=== PATIENT | female | born 1950 | race Caucasian/White ===

== ENCOUNTER 2016-03-02 09:54 | Outpatient (CLI) | payer MEDICARE, BC ==
[2016-03-02 10:48] LABS: Bilirubin Negative (Negative); Blood, Urine Negative (Negative); Clarity Clear (Clear); Glucose, Urine (Dipstick) Negative (Negative); Leukocyte Small (Negative); Nitrite Negative (Negative); Protein, Urine (Dipstick) Negative (Neg-Trace); Urobilinogen 0.2 mg/dL (0.2-1.0); pH, Urine 5.5 (5.0-9.0)
[2016-03-02 10:55] LABS: ALT (SGPT) 21 U/L (0-55); AST (SGOT) 25 U/L (5-34); Albumin 4.3 g/dL (3.4-4.8); Alkaline Phosphatase 49 U/L (40-150); Anion Gap 12 mmol/L (10-20); BUN (Urea Nitrogen) 15 mg/dL (9.8-20.1); Bilirubin, Total 0.8 mg/dL (0.2-1.2); Calc. Creatinine Clearance 0 mL/min (70-130); Calcium 9.1 mg/dL (7.8-10.44); Carbon Dioxide 27 mmol/L (23-31); Chloride 108 mmol/L (98-107); Estimated GFR-MDRD 88; Globulin 2.2 g/dL (2.4-3.5); Glucose 73 mg/dL (80-115); Potassium 3.9 mmol/L (3.5-5.1); Protein, Total 6.5 g/dL (5.8-8.1); Sodium 143 mmol/L (136-145)
[2016-03-02 11:24] LABS: #Lymphocytes 0.9 thou/uL (1.20-3.40); #Monocytes 0.3 thou/uL (0.11-0.59); #Neutrophils 1.8 thou/uL (1.40-6.50); %Basophils 0.9 % (0.0-1.0); %Eosinophils 1.2 % (0.0-10.0); %Lymphocytes 29.9 % (21.0-51.0); %Monocytes 9.3 % (0.0-10.0); %Neutrophils 58.7 % (42.0-75.0); Hemoglobin 11.8 g/dL (12.0-16.0); Mean Corpuscular HGB CONC 33.1 g/dL (32.0-36.0); Mean Corpuscular Volume 102.9 fl (81.0-99.0); Mean Platelet Volume 7.6 fL (7.4-10.4); Platelet Count 114 thou/uL (130-400); Red Blood Cell (RBC) Count 3.47 mill/uL (4.20-5.40)
[2016-03-02 11:25] LABS: PLT Morphology Comment Appears Adequate
[2016-03-02 11:26] LABS: Manual Diff?? YES
[2016-03-02 11:33] LABS: Eosinophils 4 % (0-10); Lymphocytes 35 % (21-51); MDiff Complete? YES; Monocytes 10 % (0-10); Neutrophil 50 % (42-75)
[2016-03-02 13:27] LABS: Free T4 (Free Thyroxine) 0.77 ng/dL (0.70-1.48); Thyroid Stimulating Hormone 1.7835 uIU/mL (0.35-4.94); Vitamin D, 25 Hydroxy 18.8 ng/mL (> 30.0)
== END 2016-03-02 09:55 | disposition home or self-care (01) ==
LOC: MADLAB 09:54
PROVIDERS: ATTEND Physician Assistant
DX: Z00.00 Encounter for general adult medical examination without abnormal findings (principal); R53.83 Other fatigue
CPT/HCPCS: 36415; 80053; 81003; 82306; 82607; 84439; 84443; 85025

== ENCOUNTER 2016-06-22 07:32 | Outpatient (CLI) | payer MEDICARE, BC ==
--- NOTE | 2016-06-22 09:02 | ULT ---
ABDOMINAL ULTRASOUND HISTORY: Abdominal pain and iron deficiency anemia. TECHNIQUE: Real-time imaging of the upper abdomen was performed. FINDINGS: There is shadowing from the region of the gallbladder fossa, which, in the absence of a history of a cholecystectomy, is compatible with a contracted gallbladder with stones. The visualized liver par enchyma shows no focal abnormalities. The spleen measures 11 cm in length. The pancreas is partial ly obscured. The abdominal aorta and IVC regions are unremarkable. The kidneys are normal in size. There is some mild cortical thinning noted. IMPRESSION: Shadowing from the region of the gallbladder fossa, most compatible with a contracted gallbladder wi th stones. The common duct is normal in caliber, at 2 mm, and there is a negative ultrasound Montero sign. POS: BABAR
== END 2016-06-22 07:33 | disposition home or self-care (01) ==
LOC: MADULT 07:32
DX: D50.9 Iron deficiency anemia, unspecified (principal); D51.9 Vitamin B12 deficiency anemia, unspecified
CPT/HCPCS: 76700